=== PATIENT | male | born 1945 ===

== ENCOUNTER 2017-07-26 13:05 | Outpatient (CLI) | payer OTHER | END 2017-07-26 15:00 | disposition home or self-care (01) | LOC: MRI 13:05 | DX: S46.092A Other injury of muscle(s) and tendon(s) of the rotator cuff of left shoulder, initial encounter (principal); I11.9 Hypertensive heart disease without heart failure; Z68.30 Body mass index [BMI] 30.0-30.9, adult; F41.8 Other specified anxiety disorders | CPT/HCPCS: 73221 ==

== ENCOUNTER → 2017-07-26 | Outpatient (CLI) | payer OTHER ==
[~2017-07-26] MED LIST: ASPIRIN81 M2; HYZAAR 100-121 UDTAB; LANTUS SOLOSTAR3 ML; LIPITOR20 MG; METFORMIN HCL1000 MG; NORVASC2.5 MG
== END | disposition home or self-care (01) ==
LOC: TOM 14:21
DX: S46.092A Other injury of muscle(s) and tendon(s) of the rotator cuff of left shoulder, initial encounter (principal); I11.9 Hypertensive heart disease without heart failure; Z68.30 Body mass index [BMI] 30.0-30.9, adult; F41.8 Other specified anxiety disorders

== ENCOUNTER 2017-08-08 11:21 | Outpatient (CLI) | payer OTHER | END 2017-08-08 11:40 | disposition home or self-care (01) | LOC: RAD 11:21 | DX: J44.9 Chronic obstructive pulmonary disease, unspecified (principal) ==

== ENCOUNTER 2017-12-30 07:00 | Day surgery (SDC) | payer OTHER | END 2017-12-30 13:30 | disposition home or self-care (01) | LOC: AMB-ENDOS 07:00 → CIR.AMB 14:15 | DX: K57.30 Diverticulosis of large intestine without perforation or abscess without bleeding (principal); K64.1 Second degree hemorrhoids ==

== ENCOUNTER → 2018-10-31 | Outpatient (CLI) | payer OTHER | END | disposition home or self-care (01) | LOC: TOM 15:09 | DX: N20.1 Calculus of ureter (principal); N23 Unspecified renal colic ==

== ENCOUNTER 2020-08-25 14:01 | Outpatient (CLI) | payer OTHER | END 2020-08-25 14:10 | disposition home or self-care (01) | LOC: RAD 14:01 | PROVIDERS: ATTEND Pulmonary Function Technologist | DX: J45.998 Other asthma (principal); I25.10 Atherosclerotic heart disease of native coronary artery without angina pectoris ==

== ENCOUNTER 2022-02-02 10:51 | Outpatient (CLI) | payer OTHER | END 2022-02-02 11:02 | disposition home or self-care (01) | LOC: TOM 10:51 | PROVIDERS: ATTEND Urology | DX: N20.1 Calculus of ureter (principal) ==

== ENCOUNTER 2023-01-06 14:17 | Outpatient (CLI) | payer OTHER | END 2023-01-06 14:18 | disposition home or self-care (01) | LOC: LAB 14:17 | PROVIDERS: ATTEND Radiology Diagnostic Radiology | DX: G31.84 Mild cognitive impairment of uncertain or unknown etiology (principal) ==

== ENCOUNTER 2023-02-08 11:38 | Outpatient (CLI) | payer OTHER | END 2023-02-08 11:48 | disposition home or self-care (01) | LOC: TOM 11:38 | PROVIDERS: ATTEND Family Medicine | DX: R41.81 Age-related cognitive decline (principal); R41.82 Altered mental status, unspecified; F68.8 Other specified disorders of adult personality and behavior | CPT/HCPCS: 70551 ==